=== PATIENT | female | born 1975 | race African-American/Black ===

== ENCOUNTER 2017-09-19 10:54 | Emergency (ER) | payer SELFPAY ==
[~2017-09-19] VITALS: Ht 180.3 cm; Wt 190.9 kg
[2017-09-19 11:44] VITALS: BP 143/88
[2017-09-19] MEDS ORDERED: ADVIL200 MG PO (12:25)
[2017-09-19] MEDS ORDERED: LIDODERM 5% PATC1 EA TP (12:52)
[2017-09-19] MEDS ORDERED: NORCO 325 MG-7.1 TAB PO (12:52)
[2017-09-19 13:11] VITALS: PULSE 81; TEMP 98.3
== END 2017-09-19 13:09 | disposition home or self-care (01) ==
LOC: COL.ER 10:54
DX: M25.562 Pain in left knee (principal); F17.290 Nicotine dependence, other tobacco product, uncomplicated

== ENCOUNTER 2021-11-10 10:16 | Day surgery (SDC) | payer BC ==
[~2021-11-10] VITALS: Ht 177.8 cm; Wt 177.0 kg
[2021-11-10] VITALS (8 sets, daily range): BP systolic 123–174; BP diastolic 63–98; PULSE 68–80; TEMP 98–98.8
[~2021-11-10 10:16] MED LIST: ADVIL200 MG PO; FARXIGA10 PO; GLUCOPHAGE500 MG/TAB PO; LIDODERM 5% PATC1 EA TP; NORCO 325 MG-7.1 TAB PO; OZEMPIC0.25 MG/0. SQ; PROTONIX 40MG T40 MG PO; WELLBUTRIN SR150 M1 PO
[2021-11-10 11:22] LABS: BASO % 0.8 % (0.0-2.0); EOS # 0.1 K/mm3 (0.0-0.7); EOS % 2.5 % (0.0-4.0); GRAN # 2.6 K/mm3 (1.4-6.5); HEMATOCRIT 38.9 % (37.0-47.0); HEMOGLOBIN 12.3 g/dl (12.5-16.0); LYMPH # 2.2 K/mm3 (1.2-3.4); LYMPH % 41.7 % (20.0-51.0); MEAN CELL VOLUME 85 fl (80.0-100.0); MEAN CORPUSCULAR HEMOGLOBIN 27 pg (27-31); MEAN CORPUSCULAR HGB CONC 32 g/dl (33.0-37.0); MEAN PLATELET VOLUME 12.1 fl (7.4-10.4); MONO # 0.4 K/mm3 (0.1-0.6); MONO % 6.8 % (1.7-9.3); PLATELET COUNT 211 K/mm3 (130-400); RED BLOOD COUNT 4.56 M/mm3 (4.10-5.30); REDCELL DISTRIBUTION WIDTH-CV 14.3 % (11.5-14.5)
[2021-11-10 11:36] LABS: ALBUMIN 3.6 gm/dL (3.5-5.0); BILIRUBIN,TOTAL 0.4 mg/dL (0.2-1.2); CALCIUM 9.1 mg/dL (8.4-10.2); CREATININE, serum 0.82 mg/dL (0.57-1.11); POTASSIUM 4.1 mmol/L (3.5-4.5); TOTAL PROTEIN 7.3 gm/dL (6.2-8.1)
[2021-11-10] MEDS ORDERED: MOTRIN 600600 MG/TAB PO (12:15)
[2021-11-10] MEDS ORDERED: PERCOCET 325 MG1 TA2 PO (12:15)
--- NOTE | 2021-11-10 16:50 | NUR ---
Arrived to room 332 via stretcher. Assessment complete. LCTA. +BS. Post op vitals initiated. IV fluids initiated to left wrist INT. O2@2L/NC. Lap sites x5-surgical glue-edges well approximated-no drainage noted. Family is at bedside. Plan of care discussed for pain management/ambulation/possible DC if criteria met. Verbalizes undersanding. WIll monitor.
--- NOTE | 2021-11-10 17:15 | NUR ---
Dr Mccray notified of need for fluid orders. Also discussed BANK REPRESENTATIVE pump and trying morphine first. New orders received for LR@75ml/hr and Morphine 4mg q2h.
--- NOTE | 2021-11-10 18:20 | NUR ---
Patient up to side of bed with stand by assist. IV fluids on standby as patient is sitting and standing to help relieve gas pain. Recieved on dose of morphine and one dose of percocet for pain. Has tolerated a clear liquid diet and ADA diet ordered. Family remains at bedside.
[2021-11-11 00:14] VITALS: BP 146/78; PULSE 98; TEMP 99.4
[2021-11-11 04:39] VITALS: BP 114/61; PULSE 108; TEMP 98.3
[2021-11-11 07:24] VITALS: BP 125/66; PULSE 101; TEMP 98.7
--- NOTE | 2021-11-11 08:10 | NUR ---
Pt resting in bed during assessment. Incisions are all well approximated with no drainage noted. Pt appears to be having some pain, reports it has sharp and feels it is moving. Educated on gas pains and that ambulation is the best way to help with that. PRN pain medication given to help with pain/ambulation. Pt does have complaints of numbness to her left uppr leg. Pt reports that she feels steady walking. Pt is not feeling like eating anything at this time, only asked for jello. INT'd IV fluids at this time.
--- NOTE | 2021-11-11 09:35 | NUR ---
Initial visit; Patient in pain and was receptive to Gardening Supervisor visit. Gardening Supervisor offered kindness and prayer. Patient thanked Gardening Supervisor for looking in on her.
--- NOTE | 2021-11-11 10:33 | NUR ---
Pt has been up and did walk in the halls. She did use a walker and appeared weak, but did report that her pain was tolerable and that the oral pain medication that I gave did help. No other needs verbalized, call light within reach, will continue to monitor
--- NOTE | 2021-11-11 11:02 | NUR ---
Pipe Cleaning Machine Operator met with patient to discuss discharge planning. Patient appears to be uncomfortable but is able to minimally answer questions. Patient lives in [place] with her two children, ages 18 and 14. Patient recently switched to Radha Mike APRN for primary care and has an upcoming appointment scheduled with her. Patient does not use any DME and is independent with [facility]. Patient works at the [place] [employer]. Patient list her mother, Francie (ph#[phone]) as an emergency contact. Patient plans to return home at time of discharge. Discharge Plan: Home
[2021-11-11 11:37] VITALS: BP 105/66; PULSE 103; TEMP 98.5
--- NOTE | 2021-11-11 16:31 | NUR ---
Pt has done well this afternoon. She did shower and does appear to be doing better. Oral pain medication is keeping her pain under control. Reviewed discharge instructions with her and she states that she is ready to go home. INT removed from left wrist and pt escorted out.
== END 2021-11-11 16:33 | disposition home or self-care (01) ==
LOC: SDCO 10:16 → SURG 16:55 → SDCO 11-11 16:33
PROVIDERS: Surgery
DX: K80.10 Calculus of gallbladder with chronic cholecystitis without obstruction (principal); K76.0 Fatty (change of) liver, not elsewhere classified; E66.01 Morbid (severe) obesity due to excess calories; Z68.43 Body mass index [BMI] 50.0-59.9, adult; Z87.891 Personal history of nicotine dependence
CPT/HCPCS: OP; J0330; J0690; J1170; J1885; J2250; J2270; J2370; J2704; J3010; J7050; J7120

== ENCOUNTER 2021-11-15 00:06 | Emergency (ER) | payer BC ==
[~2021-11-15] VITALS: Ht 177.8 cm; Wt 177.3 kg
[~2021-11-15 00:06] MED LIST changes: +MOTRIN 600600 MG/TAB PO; +PERCOCET 325 MG1 TA2 PO
[2021-11-15 00:25] VITALS: TEMP 98.6
[2021-11-15 00:52] LABS: BASO % 0.4 % (0.0-2.0); EOS # 0.1 K/mm3 (0.0-0.7); EOS % 1.6 % (0.0-4.0); GRAN # 4.9 K/mm3 (1.4-6.5); GRAN % 64.6 % (42.2-75.2); HEMOGLOBIN 11.3 g/dl (12.5-16.0); LYMPH # 1.8 K/mm3 (1.2-3.4); LYMPH % 23.6 % (20.0-51.0); MEAN CELL VOLUME 82 fl (80.0-100.0); MEAN CORPUSCULAR HEMOGLOBIN 27 pg (27-31); MEAN CORPUSCULAR HGB CONC 33 g/dl (33.0-37.0); MEAN PLATELET VOLUME 11.6 fl (7.4-10.4); MONO # 0.7 K/mm3 (0.1-0.6); MONO % 8.7 % (1.7-9.3); PLATELET COUNT 250 K/mm3 (130-400); RED BLOOD COUNT 4.24 M/mm3 (4.10-5.30)
[2021-11-15 01:05] LABS: HEMATOCRIT 34.7 % (37.0-47.0)
[2021-11-15 01:11] LABS: ALBUMIN 2.7 gm/dL (3.5-5.0); BILIRUBIN,TOTAL 0.4 mg/dL (0.2-1.2); CALCIUM 9.4 mg/dL (8.4-10.2); CREATININE, serum 0.78 mg/dL (0.57-1.11); POTASSIUM 3.9 mmol/L (3.5-4.5); TOTAL PROTEIN 7.5 gm/dL (6.2-8.1)
[2021-11-15 01:32] LABS: COLLECTION METHOD CLEAN CATCH
[2021-11-15 01:38] LABS: MUCOUS Present (NOT PRESENT); PH 7 (5-8); URINE APPEARANCE Clear (CLEAR/HAZY); URINE BACTERIA None Seen /hpf (NONE SEEN); URINE BILIRUBIN Negative (NEGATIVE); URINE BLOOD Negative (NEGATIVE); URINE COLOR Yellow (YELLOW); URINE GLUCOSE Negative (NEGATIVE); URINE KETONE Negative (NEGATIVE); URINE LEUKOCYTE ESTERASE Negative (NEGATIVE); URINE NITRATE Negative (NEGATIVE); URINE PROTEIN(semi-quant) Negative (NEGATIVE); URINE RBC 0-2 /hpf (0-2); URINE UROBILINOGEN Negative (NEGATIVE)
[2021-11-15] MEDS ORDERED: ZOFRAN ODT4 MG PO (02:37)
[2021-11-15] MEDS ORDERED: PERCOCET 325 MG1 TA2 PO (02:42)
[2021-11-15 02:56] VITALS: BP 162/92; PULSE 92
== END 2021-11-15 02:56 | disposition home or self-care (01) ==
LOC: COL.ER 00:06
PROVIDERS: Emergency Medicine
DX: R10.84 Generalized abdominal pain (principal); E66.01 Morbid (severe) obesity due to excess calories; Z68.43 Body mass index [BMI] 50.0-59.9, adult; Z32.02 Encounter for pregnancy test, result negative; Z90.49 Acquired absence of other specified parts of digestive tract; Z28.310 Unvaccinated for COVID-19
CPT/HCPCS: J2405; J3010; J7120; Q9967